=== PATIENT | female | born 1980 | race Caucasian/White ===

== ENCOUNTER 2023-11-27 02:15 | Observation (INO) | payer BC, SELFPAY ==
[2023-11-27] VITALS (22 sets, daily range): BP systolic 116–157; BP diastolic 72–104; PULSE 81–130; RESP 7–26; TEMP 36.5–36.6; O2SAT 97–100; BMI 25.0
--- NOTE | 2023-11-27 02:32 | W.ED.GENAD ---
HPI General Date/Time Provider Initiated Documentation: 11/27/23 02:21. 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 The procedure was performed laparoscopically. She had an uneventful surgical experience, no complications. She had been doing well, and had been recently cleared. She was traveling up to [place] with her for a trip this weekend. This morning she sneezed and felt some pressure vaginally. No bleeding at that time, and then later in the morning at 8:30 AM she began to have a small amount of bleeding. This continued throughout the day, and this evening it became quite significant with a slow steady trickle. She was instructed to come to the nearest ER by her OB doctor and hence she has presented here. She denies any abdominal pain. She denies any vaginal discomfort. She denies any chest pain or shortness of breath. She denies any other complaints at this time. She denies any purulent discharge or malodorous discharge. No vomiting or diarrhea. 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 3.ENT: Atraumatic external nose and ears. Moist MM. Neck: Symmetric, trachea midline, No thyromegaly. 4.CVS: +S1/S2, No murmurs or gallops. Peripheral pulses 2+ and equal in all extremities. Brisk capillary refill in all extremities. 5.RESP: Unlabored respiratory effort. Clear to auscultation bilaterally. No wheezes rales or rhonchi 6.GI: Soft, Nontender/Nondistended, No hepatosplenomegaly. No guarding or rebound. 7.MSK: Normocephalic/Atraumatic, Extremities w/o deformity or ttp No cyanosis or clubbing, Normal movement of all extremities 8.Skin: Warm, Dry. No rashes or lesions. 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 Sensation grossly intact, no focal neurologic deficits. 10.Psych: (AAO) x3. 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 The procedure was performed laparoscopically. She had an uneventful surgical experience, no complications. She had been doing well, and had been recently cleared. She was traveling up to [place] with her for a trip this weekend. This morning she sneezed and felt some pressure vaginally. No bleeding at that time, and then later in the morning at 8:30 AM she began to have a small amount of bleeding. This continued throughout the day, and this evening it became quite significant with a slow steady trickle. She was instructed to come to the nearest ER by her OB doctor and hence she has presented here. She denies any abdominal pain. She denies any vaginal discomfort. She denies any chest pain or shortness of breath. She denies any other complaints at this time. She denies any purulent discharge or malodorous discharge. No vomiting or diarrhea. Exam demonstrates well-appearing female, no tachycardia, no abdominal tenderness, no subcutaneous crepitus. Mild active bleeding is present vaginally. Concern for dehiscence. We will get an IV, get blood work, type and screen, rehydrate with a liter of lactated Ringer's. Will reach out to the patient's obstetrics station mechanic apprentice prior to speculum exam. We will monitor closely and reassess. 3:08 AM Discussed the case with Dr. Lesli Guevara, the on-call OB. She does recommend a gentle speculum exam for further visualization as well as the plan previously discussed with labs and CT imaging. Speculum exam was performed with female nurse Colleen at bedside. Large clots were found in the vaginal vault which were removed, steady trickle of blood was noted. In addition to this large amount of serous fluid, around 20 cc was also present in the vaginal vault and drained. However because of more posterior blood and clots were unable to completely visualize the postoperative site. As there was a high concern for dehiscence, I felt it unwise to perform deep speculum exam, or to perform aggressive clot and blood extraction out of concern for additional posterior wall damage. Patient remains notably hemodynamically stable and pain-free. 5:19 AM Patient's laboratory workup is returned. Patient demonstrates an initial hemoglobin of 12, reassessment at 5 AM is now down to 10. [address] scan shows active extravasation of contrast into the vaginal vault suggesting active bleed. Patient's heart rate has been increasing and is now in the low 100s, while initially was in the 80s on arrival. Blood pressure is also transitioned to the high 90s. Second liter of fluids is being administered. We have ordered 2 units of PRBCs to be administered. Discussed the case with the obstetrics station mechanic apprentice at [facility], and with the patient's worsening hemodynamic status and active hemorrhage, we felt that it was not farris to transfer the patient [facility] when we do have surgical capabilities here for management of this. Obstetrics agrees. I did contact Dr. Da Silva and discussed the case with her. She agrees with the plan and has assessed the patient and will be taking her to the OR. I have extensively reviewed the treatment plan with the patient. I have addressed all patient concerns at this time. I have also discussed the plan with the admitting physician and they agree with the current assessment and plan and have agreed to assume responsibility for the patient. All parties demonstrate verbal understanding and agreement with our assessment and plan at this time. The documentation in this chart was dictated using [employer] dictation software. Please excuse any dictation errors. FINDINGS: Liver: Normal. No mass. Gallbladder and bile ducts: Normal. No calcified stones. No ductal dilation. Pancreas: Normal. No ductal dilation. Spleen: Normal. No splenomegaly. Adrenal glands: Normal. No mass. Kidneys and ureters: Normal. No hydronephrosis Stomach and bowel: Unremarkable. No obstruction. No mucosal thickening. Appendix: Normal appendix. Intraperitoneal space: Small amount of simple fluid in the pelvis. No free air. Vasculature: Unremarkable. No abdominal aortic aneurysm. Lymph nodes: Unremarkable. No enlarged lymph nodes. Urinary bladder: Unremarkable as visualized. Reproductive: Status post hysterectomy. The vaginal vault is distended with a large hematoma measuring approximately 9 x 6 x 9 cm. There is active contrast extravasation ventrally and on the left within the vaginal vault. There is an involuting follicular cyst of the right ovary measuring 2.5 cm. Bones/joints: Unremarkable. No acute fracture. Soft tissues: Unremarkable. IMPRESSION: Large vaginal vault hematoma with suspected active contrast extravasation as above. Thank you for allowing us to participate in the care of your patient. Dictated and Authenticated by: Jeffrey Corley MD 11/27/2023 4:44 AM Eastern Time ([place] & Mk) Quality:SDOH Health Related Social Needs: No Data to Display Critical Care Time Critical Care Time Critical Care Time: Yes Total Critical Care Time: 100 Attestation: Upon my evaluation, this patient had a high probability of imminent or life-threatening deterioration, which required my direct attention, intervention, and personal management. I have personally provided 100 minutes of critical care time exclusive of time spent on separately billable procedures. Time includes review of laboratory data, radiology results, discussion with consultants, and monitoring for potential decompensation. Interventions were performed as documented. [facility] All Active Problems (Updated 11/27/23 @ 05:27 by Melquiades Ballard DO) Postoperative wound dehiscence (Acute) Vaginal bleeding (Acute) Post-operative complication (Acute) Social History Smoking/Tobacco Use Status: Never Smoking risk assessment performed?: Yes Alcohol Intake: current Alcohol Intake frequency: holidays/special occasions only Alcohol type: wine Drug use: Never Substance use type: does not use Housing: house Do you feel safe at home: Yes Do you feel safe in your relationship?: Yes Additional Social history: at side, very supportive Discharge Plan Disposition Patient Disposition: Admit to 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
--- NOTE | 2023-11-27 03:00 | DI.CT_ITS ---
Exam(s) CT ABDOMEN PELVIS W EXAM: CT ABDOMEN PELVIS W CLINICAL HISTORY: post hysto major vaginal bleeding after sneezing. TECHNIQUE: Imaging Protocol: Axial computed tomography images with coronal and sagittal reformatted images were created and reviewed CONTRAST MATERIAL: Intravenous: Omnipaque 350 Contrast volume:100 ml Oral: / no COMPARISON: No exams were available for comparison FINDINGS: ABDOMEN and PELVIS: Lung Bases: No acute findings. Liver: Normal density. No measurable mass. Gallbladder and biliary tract: No radiodense calculus or dilation. Pancreas: Normal density. No abnormal calcifications or inflammatory process. No evidence of mass. Spleen: Normal. Kidneys: Normal size, contour and axis. No radiodense stones. No obstructive uropathy. No suspicious masses seen. Adrenal glands: No masses seen. Vasculature: Abdominal aorta non-dilated. Soft tissues: Unremarkable. Bladder: No gross wall thickening. No calculi.No focal mass. Bowel: No obstruction. No bowel wall thickening. Appendix normal. Peritoneal cavity: No ascites. No focal collection or mesenteric inflammatory response. Bones: Unremarkable for age. Reproductive organs: Status post hysterectomy. Vaginal vault abnormally distended with heterogeneous material consistent with hemorrhage. There is some active contrast extravasation indicating active hemorrhage. Vaginal hematoma measures approximately 9 x 6 x 9 cm. There is some mass effect upon th e bladder. Lymph nodes: Unremarkable. IMPRESSION:: Status post hysterectomy. Vaginal vault distended with hematoma. Active hemorrhage. RADIATION DOSE DELIVERED: 878.25mGy.cm Total DLP DATA REPOSITORY: All CT scans at this facility are submitted to the National Radiology Data Registry (NRDR) Dose Index Registry (DIR) with the [employer] (ACR). RADIATION OPTIMIZATION: All CT scans at this facility use at least one of these dose optimization te chniques: automated exposure control; mA and/or kV adjustment per patient size (includes targeted exa ms where dose is matched to clinical indication); or iterative reconstruction.
[2023-11-27] MEDS: Lactated Ringers 1,000 ML 1000 ML IV (03:20)
[2023-11-27 03:28] LABS: Abs Immature Grans 0.05 10^3/uL (0.0-0.06); Absolute Basophil Count 0.06 10^3/uL (0.0-0.2); Absolute Eosinophil Count 0.08 10^3/uL (0.0-0.7); Absolute Monocyte Count 0.33 10^3/uL (0.1-0.8); Absolute Neutrophil Count 9.49 10^3/uL (1.2-6.7); Basophils % 0.5; Eosinophils % 0.7; Immature Grans % 0.4; MCH 28.6 pg (27.0-33.0); MCHC 34.3 % (32.0-36.0); MCV 83 fL (80-95); MPV 12.1 fL (8.0-11.0); Monocytes % 2.9; Neutrophils % 82.5; Platelet Count 281 10^3/uL (130-400); RDW-SD 38.7 fL
[2023-11-27] MEDS: Omnipaque 350 MG/ML 100 ML BTL IJ (03:28)
[2023-11-27] MEDS: Normal Saline - Diluent 50 ML VIAL IJ (03:29)
[2023-11-27] MEDS: Normal Saline Flush 10 ML SYR IVP (03:30)
[2023-11-27 03:43] LABS: ALT 16 U/L (14-59); AST 14 U/L (15-37); Albumin 3.6 g/dL (3.4-5.0); Alkaline Phosphatase 88 U/L (46-116); Anion Gap 12.6 mmol/L (3-11); BUN 9 mg/dL (7-18); Bilirubin, Total 0.5 mg/dL (0.2-1.0); CO2 23.4 mmol/L (21.0-32.0); CREATININE 0.7 mg/dL (0.55-1.02); Chloride 102 mmol/L (98-107); Estimated GFR 111.36 (mL/min/1.73m2); Glucose 155 mg/dL (74-106); Potassium 3.8 mmol/L (3.5-5.1); Sodium 138 mmol/L (136-145); Total Protein 7.1 g/dL (6.4-8.2)
[2023-11-27 03:47] LABS: Calcium 8.8 mg/dL (8.5-10.1)
--- NOTE | 2023-11-27 04:44 | DI.VRAD_ITS ---
Addendum created by Jeffrey Corley MD on 11/27/2023 4:48:15 AM EST: This report contains findings that may be critical to patient care. The findings were verbally communicated via telephone conference with SARITHA Yanez at 4:47 AM EST on 11/27/2023. The findings were acknowledged and understood. Initial report created on 11/27/2023 4:44:32 AM EST: PROCEDURE INFORMATION: Exam: CT Abdomen And Pelvis With Contrast Exam date and time: 11/27/2023 3:32 AM Age: 43 years old Clinical indication: Other: Vaginal bleeding post hysto; Prior surgery; Surgery date: <1 month; Surgery type: Hysto 16 days ago; Patient HX: Post hysto major vaginal bleeding after sneezing TECHNIQUE: Imaging protocol: Computed tomography of the abdomen and pelvis with contrast. Radiation optimization: All CT scans at this facility use at least one of these dose optimization techniques: automated exposure control; mA and/or kV adjustment per patient size (includes targeted exams where dose is matched to clinical indication); or iterative reconstruction. Contrast material: OMNIPAQUE 350; Contrast volume: 100 ml; Contrast route: INTRAVENOUS (IV); COMPARISON: No relevant prior studies available. FINDINGS: Liver: Normal. No mass. Gallbladder and bile ducts: Normal. No calcified stones. No ductal dilation. Pancreas: Normal. No ductal dilation. Spleen: Normal. No splenomegaly. Adrenal glands: Normal. No mass. Kidneys and ureters: Normal. No hydronephrosis. Stomach and bowel: Unremarkable. No obstruction. No mucosal thickening. Appendix: Normal appendix. Intraperitoneal space: Small amount of simple fluid in the pelvis. No free air. Vasculature: Unremarkable. No abdominal aortic aneurysm. Lymph nodes: Unremarkable. No enlarged lymph nodes. Urinary bladder: Unremarkable as visualized. Reproductive: Status post hysterectomy. The vaginal vault is distended with a large hematoma measuring approximately 9 x 6 x 9 cm. There is active contrast extravasation ventrally and on the left within the vaginal vault. There is an involuting follicular cyst of the right ovary measuring 2.5 cm. Bones/joints: Unremarkable. No acute fracture. Soft tissues: Unremarkable. IMPRESSION: Large vaginal vault hematoma with suspected active contrast extravasation as above. Dictated and Authenticated by: Jeffrey Corley MD. Ordering:ALPESH Arntet MD
[2023-11-27 05:08] LABS: HCT 31.3 % (36.0-46.0); HGB 10.7 g/dL (11.2-15.7); MCH 28.2 pg (27.0-33.0); MCHC 34.2 % (32.0-36.0); MCV 82 fL (80-95); MPV 11.9 fL (8.0-11.0); Platelet Count 258 10^3/uL (130-400); RDW-SD 38.9 fL; WBC 11.76 10^3/uL (4.4-10.8)
--- NOTE | 2023-11-27 05:26 | ANES.PREOP_ITS ---
General Info Date of Service Date Performed: 11/27/23 Height: 5 ft 5 in Weight: 68.039 kg Body Mass Index (BMI): 25.0 Meds Allergies and Home Medications Allergies Allergy/AdvReac Type Severity Reaction Status Date / Time No Known Allergies Allergy Unverified 11/27/23 02:24 Home Medication Medication Instructions Recorded escitalopram oxalate 5 mg tablet 5 mg PO DAILY 11/27/23 (Lexapro) Current Visit Medications: Current Medications Generic Name Dose Route Start Last Admin Trade Name Freq PRN Reason Stop Dose Admin Iohexol 100 ml 11/27/23 03:30 11/27/23 03:28 Omnipaque 350 Mg/Ml 100 Ml Btl IJ 12/27/23 23:59 100 ml DIRECTED CATHY Administration Sodium Chloride 50 ml 11/27/23 03:30 11/27/23 03:29 Normal Saline - Diluent 50 Ml Vial IJ 50 ml .FOR DI USE CATHY Administration Sodium Chloride 0 ml 11/27/23 03:30 11/27/23 03:30 Normal Saline Flush 10 Ml Syr IVP 10 ml PRN PRN Administration [facility] Tobacco Smoking/Tobacco Use Status: Never Alcohol Alcohol Intake: current Alcohol intake frequency: holidays/special occasions only Alcohol type: wine Substance Use Substance use: Never Substance use type: does not use Vital Signs and Lab Results Vital Signs Most Recent Vital Signs in EMR: Most Recent Vital Signs Temp Pulse Resp BP Pulse Ox 36.5 C 99 H 24 157/97 H 99 11/27/23 02:25 11/27/23 04:32 11/27/23 04:32 11/27/23 04:32 11/27/23 04:32 Lab Results 11/27/23 05:04 11/27/23 03:15 Blood Type / Crossmatch: 2 Patient ABO/Rh O Positive 11/27/23 Antibody Screen NEGATIVE 11/27/23 Complete Blood Count: 2 White Blood Count 11.76 10^3/uL (4.4-10.8) H 11/27/23 05:04 Red Blood Count 3.80 10^6/uL (3.93-5.22) L 11/27/23 05:04 Hemoglobin 10.7 g/dL (11.2-15.7) L 11/27/23 05:04 Hematocrit 31.3 % (36.0-46.0) L 11/27/23 05:04 Platelet Count 258 10^3/uL (130-400) 11/27/23 05:04 Complete Metabolic Panel: 2 Sodium 138 mmol/L (136-145) 11/27/23 03:15 Potassium 3.8 mmol/L (3.5-5.1) 11/27/23 03:15 Chloride 102 mmol/L (98-107) 11/27/23 03:15 Carbon Dioxide 23.4 mmol/L (21.0-32.0) 11/27/23 03:15 BUN 9 mg/dL (7-18) 11/27/23 03:15 Creatinine 0.7 mg/dL (0.55-1.02) 11/27/23 03:15 Est GFR (CKD-EPI 2020) 111.36 (mL/min/1.73m2) 11/27/23 03:15 Calcium 8.8 mg/dL (8.5-10.1) 11/27/23 03:15 Albumin 3.6 g/dL (3.4-5.0) 11/27/23 03:15 Glucose 155 mg/dL (74-106) H 11/27/23 03:15 Liver Function Panel: 2 Alanine Aminotransferase (ALT/SGPT) 16 U/L (14-59) 11/27/23 03: 15 Aspartate Amino Transf (AST/SGOT) 14 U/L (15-37) L 11/27/23 03: 15 Coagulation Panel: 2 INR International Normalized Ratio Pending 11/27/23 05:1 6 Prothrombin Time Pending 11/27/23 05:16 Activated Partial Thromboplast Time Pending 11/27/23 05: 16 Cardiac Panel: 2 No Data to Display Arterial Blood Gas: 2 No Data to Display Venous Blood Gas: 2 No Data to Display Pancreas Panel: 2 No Data to Display Thyroid Panel: 2 No Data to Display Infectious Disease: 2 No Data to Display Blood Cultures: 2 No Data to Display Toxicology Panel: 2 No Data to Display Panel: 2 No Data to Display Anesthesia Assessment and Plan Anesthesia History Personal History: No History of Anesthesia Complications Family History: No Family History of Anesthesia Complications Exercise Tolerance Exercise Tolerance: Metabolic Equivalents>4 Cardiac & Pulmonary Exam Cardiac Exam: Normal S1/S2 Heart Sounds Pulmonary Exam: Clear Bilateral Breath Sounds Implantable Cardiac Device Does patient have a Pacemaker or an ICD?: No Airway Exam Known Difficult Airway: No Mallampati Class: 2 Mouth Opening: Normal (> 3cm) Thyromental Distance: Greater than 3 cm Neck Range of Motion: Full ROM Neck Circumference: Normal Teeth Condition: Normal Dentition ASA Classification ASA Score: ASA 1 Emergency Case?: Yes NPO Status NPO Status: NPO Clears >2 hours, Solids >8 hours Status Status: History of Hysterectomy Anesthesia Plan Resuscitation Status: Full Code Anesthesia Technique: General Anesthesia Airway Planned: Endotracheal Tube Monitors Used: Standard Monitors Preoperative Comments:: 43 yo female to OR for vag cuff repair. Sig PMHx: denies
[2023-11-27] MEDS: LORazepam 2 MG/ML VIAL 1 MG IVP (05:31)
[2023-11-27 05:33] LABS: PTT Activated 26.3 sec (23.6-32.8); Prothrombin Time 10.5 sec (9.1-11.1)
--- NOTE | 2023-11-27 05:39 | W.PM.HP.N ---
Date of service: 11/27/23 Time of Service: 05:39 Assessment and Plan Assessment and plan (1) Postoperative wound dehiscence: Status: Acute Assessment and plan: Patient is approximately 2 weeks after a laparoscopic assisted vaginal hysterectomy with a wound dehiscence of the vaginal cuff. She is bleeding copiously and will require surgical repair of the dehiscence. I counseled the patient regarding the risks of the procedure including the risk of infection, bleeding and damage to surrounding structures. She was consulted for possible laparotomy in the event we were unable to control the bleeding from the vagina. Consent was obtained her questions were answered. History of Present Illness History of Present Illness Chief Complaint: Vaginal bleeding Consults Consult date: 11/27/23 Requesting physician: Melquiades Ballard Narrative: Patient is a 43-year-old G3, P3 female who presented to the [facility] emergency department with vaginal bleeding that began earlier in the day. Patient is 16 days postop from a laparoscopic assisted vaginal hysterectomy at [facility] in [place]. 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 I spoke with the gynecology fellow by phone and she reviewed the case there were long-term dissolvable sutures placed via the vagina. Patient states that she had no bleeding prior to the episode this morning. The bleeding occurred after she sneezed and felt a pop. On examination the emergency room she has large clot and extravasation of blood from the lateral hysterectomy margin. CAT scan with contrast showed a 9 x 6 x 9 cm organized clot at the vaginal cuff. Otherwise normal postop changes. Review of Systems All systems reviewed & are unremarkable except as noted in HPI and below Constitutional Constitutional: Reports chills Cardiovascular Cardiovascular: Reports system reviewed and no additional complaints, except as documented Respiratory Respiratory: Reports system reviewed and no additional complaints, except as documented Gastrointestinal Gastrointestinal: Reports abdominal pain, Denies change in bowel habits and Denies change in stool character Genitourinary Genitourinary: Reports as per HPI Musculoskeletal Musculoskeletal: Reports system reviewed and no additional complaints, except as documented Integumentary/Breasts Skin/Breast: Reports system reviewed and no additional complaints, except as documented Neurologic Neurologic: Reports system reviewed and no additional complaints, except as documented Psychiatric Psychiatric: Reports anxiety PFSH All Active Problems (Updated 11/27/23 @ 05:27 by Melquiades Ballard DO) Postoperative wound dehiscence (Acute) Vaginal bleeding (Acute) Post-operative complication (Acute) Social History Smoking/Tobacco Use Status: Never Smoking risk assessment performed?: Yes Alcohol Intake: current Alcohol Intake frequency: holidays/special occasions only Alcohol type: wine Drug use: Never Substance use type: does not use Housing: house Do you feel safe at home: Yes Do you feel safe in your relationship?: Yes Additional Social history: at side, very supportive History History 3 Para 3 Hx # Term Pregnancies 3 Multiple births Hx # Pregnancies Ectopic pregnancies AB induced Hx Number of Living Children 3 AB spontaneous Meds Allergies and Home Medications Allergies Allergy/AdvReac Type Severity Reaction Status Date / Time No Known Allergies Allergy Unverified 11/27/23 02:24 Home Medications Medication Instructions Recorded Confirmed Type escitalopram oxalate 5 mg tablet 5 mg PO DAILY 11/27/23 11/27/23 History (Lexapro) Exam Const General: healthy appearing, no acute distress and anxious Nutritional Appearance: average body habitus Orientation: alert, awake and oriented x3 Chest Chest: deferred Resp Effort & Inspection: normal respiratory effort Auscultation: clear to auscultation bilaterally Cardio Rate: regular rate Rhythm: regular rhythm GI Palpation: soft, no hepatosplenomegaly, no masses and nontender Rectal Exam - female: deferred General: other (Per ER physician note.) Back/Spine/Pelvis Back: no CVA tenderness Extrem General: normal to inspection and full ROM Psych Appearance: grossly normal Mental Status: mental status grossly normal Speech and Movement: speech and movement normal Mood: anxious mood Affect: anxious affect Attitude: cooperative Thought Process: normal Results Labs 11/27/23 05:04 11/27/23 03:15 Labs: Laboratory Results - last 24 hr 11/27/23 11/27/23 11/27/23 03:15 05:04 05:16 WBC 11.50 H 11.76 H RBC 4.20 3.80 L Hgb 12.0 10.7 L Hct 35.0 L 31.3 L MCV 83 82 MCH 28.6 28.2 MCHC 34.3 34.2 RDW 13.0 13.0 Plt Count 281 258 MPV 12.1 H 11.9 H Immature Gran % 0.4 Neutrophils % 82.5 Lymphocytes % 13.0 Monocytes % 2.9 Eosinophils % 0.7 Basophils % 0.5 Nucleated RBC % 0.0 Absolute Neutrophils 9.49 H Absolute Lymphocytes 1.50 Absolute Monocytes 0.33 Absolute Eosinophils 0.08 Absolute Basophils 0.06 PT 10.5 INR 1.0 APTT 26.3 Sodium 138 Potassium 3.8 Chloride 102 Carbon Dioxide 23.4 Anion Gap 12.6 H BUN 9 Creatinine 0.7 Est GFR (CKD-EPI 2020) 111.36 Glucose 155 H Calcium 8.8 Total Bilirubin 0.5 AST 14 L ALT 16 Alkaline Phosphatase 88 Total Protein 7.1 Albumin 3.6 Patient ABO/Rh O Positive Antibody Screen NEGATIVE Last Vital Signs Temp 97.7 F 11/27/23 02:25 Pulse 99 H 11/27/23 04:32 Resp 24 11/27/23 04:32 BP 157/97 H 11/27/23 04:32 Pulse Ox 99 11/27/23 04:32 Time Spent Time spent with Patient: <40 minutes Time was spent: preparing to see the patient(eg.review tests), obtaining and/or reviewing separately otained hiistory, referring, communicating with other health healthcare financial analyst and counseling the patient
[2023-11-27] MEDS: Lactated Ringers 1,000 ML 30 ML IV (06:11)
[2023-11-27] MEDS: metroNIDAZOLE 500 MG/100 ML BAG 100 MG IVPB (06:20)
--- NOTE | 2023-11-27 07:26 | W.ANESPOSTOP ---
Postoperative Evaluation Date, Time and Location Date Performed: 11/27/23 Time Performed: 07:26 Patient Location: PACU Vital Signs Most Recent Imported Vital Signs: Most Recent Vital Signs Temp Pulse Resp BP Pulse Ox 36.6 C 95 H 25 H 143/98 H 100 11/27/23 07:12 11/27/23 07:12 11/27/23 07:12 11/27/23 07:12 11/27/23 07:12 Pain Score Most Recent Pain Score: Most Recent Pain Score Pain Level [Abdomen] 0 11/27/23 02:38 Pain Level 0 11/27/23 07:12 Assessment Mental Status: Awake (Alert & Oriented to Patient Baseline) Airway and Respiratory Function: Patent airway with normal (patient baseline) respiratory exam Cardiovascular Function: Hemodynamically Stable Hydration Status: Adequately Hydrated Nausea & Vomiting: No Nausea or Vomiting Pain: Pt. Denies Any Pain Peripheral Nerve Block: Patient did not receive a nerve block
--- NOTE | 2023-11-27 07:30 | W.PM.DSUDISC ---
Date of service: 11/27/23 Time of Service: 07:30 Discharge Plan Disposition Patient Disposition: Home Condition: Critical Condition: Improving Discharge Details Reason For Visit: post-op vaginal bleeding Admit Date/Time: 11/27/23 07:41 Admit Provider: Anca Da Silva Attending Provider: Anca Da Silva Primary Care Provider: No,Local Home Meds and New Rx's Prescriptions: No Action escitalopram oxalate [Lexapro] 5 mg tablet 5 mg PO DAILY Discharge Instructions Additional Instructions: I advise not returning to work this week (if you have alredy resumed light duties at work). 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 You can expect some light bright read blood for the next few days. Wear a panty liner and if the bleeding becomes heavier call your surgeon in at the [facility]. Motrin 600mg every 6 hours and Acetaminophen 325mg every six hours as needed for pain. You may eat whatevery you wish. Activity:: Activity as Tolerated Activity:: Activity as Tolerated Equipment/Supplies:: No Equipment Needed Diet:: As Tolerated Discharge Orders Discharge Orders: Discharge Order (Routine); Ordered 11/27/23 Ordered By: Anca Da Silva DS: Diagnosis Discharge Diagnosis (1) Postoperative wound dehiscence: Status: Acute Asessment and Plan: superficial dehiscence of the R lateral margin of the vaginal cuff. Cuff reinforced with interrupted sutures of 0-Vicryl. Hemostatic at the completion of the procedure.
--- NOTE | 2023-11-27 07:37 | W.ANESPOSTOP ---
Postoperative Evaluation Date, Time and Location Date Performed: 11/27/23 Time Performed: 07:38 Patient Location: Obstetrics Vital Signs Most Recent Imported Vital Signs: Most Recent Vital Signs Temp Pulse Resp BP Pulse Ox 36.6 C 95 H 25 H 143/98 H 100 11/27/23 07:12 11/27/23 07:12 11/27/23 07:12 11/27/23 07:12 11/27/23 07:12 Most Recent Vital Signs Temp Pulse Resp BP Pulse Ox 36.6 C 95 H 25 H 143/98 H 100 11/27/23 07:12 11/27/23 07:12 11/27/23 07:12 11/27/23 07:12 11/27/23 07:12 Pain Score Most Recent Pain Score: Most Recent Pain Score Pain Level [Abdomen] 0 11/27/23 02:38 Pain Level 0 11/27/23 07:12 Assessment Mental Status: Awake (Alert & Oriented to Patient Baseline) Airway and Respiratory Function: Patent airway with normal (patient baseline) respiratory exam Cardiovascular Function: Hemodynamically Stable Hydration Status: Adequately Hydrated Nausea & Vomiting: No Nausea or Vomiting Pain: Pt. Denies Any Pain Peripheral Nerve Block: Patient did not receive a nerve block
--- NOTE | 2023-11-27 08:09 | W.PM.OP ---
Date of service: 11/27/23 Time of Service: 08:09 Operative Note Operative Note DATE OF PROCEDURE: 11/27/23 PRE-OP DIAGNOSIS: superficial vaginal cuff dehiscence PROCEDURE: Repair of superficial vaginal cuff dehiscence R lateral margin SURGEON: Anca Da Silva Refer to Anesthesia Record ESTIMATED BLOOD LOSS: 100 PATHOLOGY: none sent COMPLICATIONS: None Patient was transported to: PACU Patient's condition: stable Implants: none Indications: Patient is a 43-year-old G3, P3 female who presented to the [facility] emergency department with vaginal bleeding that began earlier in the day on 11/16/22. Patient is 16 days postop from a laparoscopic assisted vaginal hysterectomy at [facility] in [place]. 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 Findings: Superficial dehiscence of the R lateral margin of the vaginal cuff. No evidence of a deeper cuff separation when cuff probed with sterile Q-Tip. Active cuff bleeding had subsided when pt in the OR. Large organized clot in the vaginal vault when initally placed in dorsal lithotomy position. Procedure Description: Pt was brought to OR from the ED and placed in the dorsal supine position. Ancef 2gm IV and Metronidazole 500mg IV was administered upon arrival in the OR. GET anesthesia was administered without difficulty. Surgical timeout performed. Pt was placed in the dorsal lithotomy position in yellow fin stirrups with SCDs in place and the vagina and perineum prepped with Betaine. A bivalve speculum was placed in the vagina and a large clot in the vaginal vault was grasped an removed intact. No active bleeding noted along the edge of the vaginal cuff. An Caitlin clamp was used to grasp the right and left lateral margins onf the vagina cuff. The cuff was gently probed with a sterile Q-Tip and and no defects in the integrity of the cuff were noted. A 5mm area of superficial dehiscence of the anterior vaginal cuff was grasped and reapproximated to the cuff with interrupted sutures of 0-Vicry. The was peformed along the length of the vaginal cuff . Once the cuff had been reinforced it was inspected and noted to be hemostatic. Instruments were removed from the patient's vagina and she was placed in the dorsal supine position, awakened and successfully extubated and transported to the PACU in stable condition. All spong instruments and needle counts were correct x2.
[2023-11-27] MEDS: Escitalopram 10 MG TAB 5 MG PO (08:27)
[2023-11-27] MEDS: Ketorolac 30 MG/ML VIAL IVP (08:28)
== END 2023-11-27 11:15 | disposition home or self-care (01) ==
LOC: ER 06:07 → SUR 06:16 → OBS 07:43 → SUR 08:01 → OBS 08:01
PROVIDERS: Admitting Provider Obstetrics & Gynecology Gynecology; Emergency Provider Student in an Organized Health Care Education/Training Program; Visit Provider Obstetrics & Gynecology Gynecology
PROC: (CPT 57335; principal; 2023-11-27 05:55)
DX: T81.32XA Disruption of internal operation (surgical) wound, not elsewhere classified, initial encounter (principal); Y83.8 Other surgical procedures as the cause of abnormal reaction of the patient, or of later complication, without mention of misadventure at the time of the procedure; Z15.09 Genetic susceptibility to other malignant neoplasm
CPT/HCPCS: 57200; 36415; 80053; 85027; 86850; 86900; 86901; 86920; 96361; 96374; 99291; 99292; 74177; 85025; 85610; 85730; G0378; J0690; J1100; J1836; J1885; J2001; J2060; J2405; J2704; J3490; P9016